=== PATIENT | male | born 2005 | race Caucasian/White ===

== ENCOUNTER 2023-07-23 09:37 | Emergency (ER) | payer SELFPAY ==
[~2023-07-23] VITALS: Ht 175.3 cm; Wt 68.0 kg
[~2023-07-23 09:37] MED LIST: AUGMENTIN400 MG/5 M OR; BACTROBAN2 % EX; NO HOME MEDS; ZOFRAN ODT4 MG OR
[2023-07-23] MEDS ORDERED: MAXITROL 0.1 %1 SUS OD (12:27)
[2023-07-23] MEDS ORDERED: ALLERGY RE50 MCG/ACT (12:27)
[2023-07-23] MEDS ORDERED: VIBRAMYCIN100 M2 PO (12:27)
[2023-07-23 12:36] VITALS: BP 130/82
== END 2023-07-23 12:40 | disposition home or self-care (01) | DRG 125 ==
LOC: ED 09:37
DX: H11.9 Unspecified disorder of conjunctiva (principal); J32.9 Chronic sinusitis, unspecified